=== PATIENT | female | born 1970 | race Caucasian/White ===

== ENCOUNTER 2016-08-17 13:58 | Emergency (ER) | payer MEDICAID ==
[~2016-08-17] VITALS: Ht 157.5 cm; Wt 58.0 kg
[~2016-08-17 13:58] MED LIST: IBUP-1542 PO; TRAM50TA2 PO
[2016-08-17 14:04] VITALS: Ht 157.5 cm; Wt 58.0 kg
--- NOTE | 2016-08-17 16:41 | ERD ---
ER Documentation Chief Complaint Date/Time DATE: 08/17/16 TIME: 16:39 Chief Complaint has flu like symptoms x 3 days, normally on 02 by mo , wants antibiotics HPI Patient is a 46-year-old female with a past medical history of sarcoidoisis who presents to the ED with 2 days of cough, sore throat. She states that her cough is productive but denies any hemoptysis or colored discharge. She states that she is always on oxygen and her oxygen saturation level is usually between 92-96. She denies chest pain. She denies leg pain or swelling. Denies recent travel or recent surgeries. 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 She denies fever or chills. She denies abdominal pain, nausea, vomiting or diarrhea. ROS All systems reviewed and are negative except as per history of present illness. Medications Home Meds Active Scripts Benzonatate* (Tessalon Perle*) 100 Mg Capsule, 100 MG PO Q8H Y for COUGH for 14 Days, CAP Prov:RALEIGH THURMAN PA-C 08/17/16 Azithromycin* (Zithromax*) 250 Mg Tablet, 250 MG PO .ZPACK DIRECTED, #6 TAB TAKE 500 MG (2 TABS) THE FIRST DAY THEN 250 MG (1 TAB) DAYS 2-5 Prov:RALEIGH THURMAN PA-C 08/17/16 Ibuprofen* (Motrin*) 600 Mg Tab, 600 MG PO Q6, #30 TAB Prov:COCO HUSAIN PA-C 12/31/15 Tramadol HCl (Tramadol HCl) 50 Mg Tablet, 50 MG PO Q4 Y for PAIN, #20 TAB Prov:COCO HUSAIN PA-C 12/31/15 Allergies Allergies: Coded Allergies: No Known Drug Allergies (Verified Allergy, Unknown, 09/26/06) PMhx/Soc Medical and Surgical Hx: pt denies Medical Hx, pt denies Surgical Hx History of Surgery: No Anesthesia Reaction: No Hx Neurological Disorder: No Hx Respiratory Disorders: Yes (sarcoidosis) Hx Cardiac Disorders: No Hx Psychiatric Problems: No Hx Miscellaneous Medical Probl: No Hx Alcohol Use: No Hx Substance Use: No Hx Tobacco Use: No Smoking Status: Never smoker FmHx Family History: No coronary disease, No diabetes, No other Physical Exam Vitals Vital Signs Date Time Temp Pulse Resp B/P Pulse Ox O2 Delivery O2 Flow Rate FiO2 08/17/16 14:04 98.1 94 18 139/89 93 Physical Exam GENERAL: Well-developed, well-nourished female. Appears in no acute distress. On oxygen HEAD: Normocephalic, atraumatic. EYES: Pupils are equally reactive bilaterally. EOMs grossly intact. No conjunctival erythema. ENT: Moist mucous membranes. No uvula deviation. No kissing tonsils. No exudates. NECK: Supple. No lymphadenopathy or thyromegaly. No meningismus. negative kernig. negative brudinski. LUNG: Clear to auscultation bilaterally. No rhonchi, wheezing, rales or coarse breath sounds. HEART: Regular rate and rhythm. No murmurs, rubs or gallops. Extremities: Equal pulses bilaterally. No peripheral clubbing, cyanosis or edema. No unilateral leg swelling. NEUROLOGIC: Alert and oriented. Moving all four extremities. 5/5 strength in all extremities. Normal speech. Steady gait. SKIN: Normal color. Warm and dry. No rashes or lesions. Capillary refill < 2 seconds Procedures/MDM ER COURSE: I kept the patient and/or family informed of laboratory and diagnostic imaging results throughout the emergency room course. IMAGING STUDIES [place] [address] Radiology Main Line: [phone] DIAGNOSTIC IMAGING REPORT Patient: CARMEN LEWIS : 1970 Age: 46 Sex: F [id number] DOS: 08/17/16 1638 Ordering MD: RALEIGH THURMAN PA-C Location: [facility] Room/Bed: PROCEDURE: XR Chest. CLINICAL INDICATION: Shortness of breath. TECHNIQUE: Single frontal view. COMPARISON: 02/20/2009. FINDINGS: There are low lung volumes and chronic bilateral interstitial pulmonary disease with fibrosis, unchanged. There is a cardiac loop recorder overlying the left side of the chest. The heart is mildly enlarged. There is no pleural effusion. There is no pneumothorax. IMPRESSION: 1. Chronic bilateral interstitial pulmonary disease. 2. Cardiac loop recorder. 3. Mild cardiomegaly. 4. Otherwise unremarkable chest radiograph. RPTAT: QQ .Clarence Díaz MD, MD Date Time Electronically viewed and signed by .Clarence Díaz MD, on 08/17/2016 17:30 .R/ CC: RALEIGH THURMAN PA-C MEDICAL DECISION MAKING: This is a 46-year-old female with a past medical history of sarcoidosis who presents with cough and congestion 2 days. Vital signs were reviewed. Patient is afebrile. Patient is not hypoxic. Patient is not toxic or ill-appearing. X rays as read by radiologist shows Chronic bilateral interstitial pulmonary disease.Cardiac loop recorder. Mild cardiomegaly. Otherwise unremarkable chest radiograph. I reviewed this case with Dr. Nieto who agreed with discharge plan. Low suspicion for pneumonia, PE, pneumothorax, ACS, epiglottitis, obstruction, TB, pertussis, meningitis, sepsis. Due to patient's past medical history I will be prescribing the patient with antibiotics. Patient does not show signs of respiratory distress. Her oxygen saturation of 93 is within normal limits for her. She states that her oxygen saturation is usually between 92-96. DISCHARGE: At this time, patient is stable for discharge and outpatient management with no new complaints during the ER course. Patient was sent home with azithromycin and a copy of her x-ray report. Patient will be discharged home with instructions to recheck for new or worsening symptoms such as fever, nausea, weakness, LOC and to follow up with primary care in the next 1-2 days. Patient was advised to return to the ER for any new or worsening symptoms. Plan was discussed and patient and/or family understands and agrees. Home instructions were given. Departure Diagnosis: Primary Impression: URI, acute Condition: Stable RALEIGH THURMAN PA-C Aug 17, 2016 16:41
--- NOTE | 2016-08-17 17:31 | RADRPT ---
PROCEDURE: XR Chest. CLINICAL INDICATION: Shortness of breath. TECHNIQUE: Single frontal view. COMPARISON: 02/20/2009. 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 There is a cardiac loop recorder overlying the left side of the chest. The heart is mildly enlarged. There is no pleural effusion. There is no pneumothorax. IMPRESSION: 1. Chronic bilateral interstitial pulmonary disease. 2. Cardiac loop recorder. 3. Mild cardiomegaly. 4. Otherwise unremarkable chest radiograph. RPTAT: QQ .Clarence Díaz MD, MD Date Time Electronically viewed and signed by .Clarence Díaz MD, MD on 08/17/2016 17:30 .R/
[2016-08-17] MEDS ORDERED: AZIT250T94 PO (17:33)
[2016-08-17] MEDS ORDERED: BENZ100C70 PO (17:34)
[2016-08-17 17:45] VITALS: BP 131/84; PULSE 89; RESP 22; TEMP 98
== END 2016-08-17 17:45 | disposition home or self-care (01) ==
LOC: FTE 13:58
DX: J06.9 Acute upper respiratory infection, unspecified (principal)
CPT/HCPCS: 71010